=== PATIENT | male | born 1975 | race Caucasian/White ===

== ENCOUNTER 2022-12-19 15:59 | Observation (INO) ==
[2022-12-19] MEDS ORDERED: NS 0.9% 1000 ml BAG 1,000 ML IV ONE (16:03)
[2022-12-19] MEDS ORDERED: Charcoal ACTIVATED 50 GM/240 ML BTL PO ONE (16:37)
[2022-12-19 16:46] LABS: ABS Lymphocytes 0.8 10^3/uL (1.0-4.8); ABS Monocytes 0.4 10^3/uL (0.0-1.1); ABS Neutrophils 4.8 10^3/uL (1.5-7.6); Eosinophil % 0.3 %; Hematocrit 38.8 % (38-53); Hemoglobin 13.3 g/dL (13.2-16.3); Lymphocyte % 13.1 %; Mean Corpuscular Hemoglobin 31.7 pg (27-33); Mean Corpuscular Hgb Conc 34.3 g/dL (31-36); Mean Corpuscular Volume 92.3 fL (80-97); Mean Platelet Volume 6.7 fL (7.5-11.2); Nucleated Red Blood Cells % 0.1 /100 WBC (0.0-0.4); Platelet Count 188 10^3/uL (150-450); Red Cell Distribution Width 12.1 % (12-17)
[2022-12-19 17:19] LABS: ALT 9 U/L (7-52); AST 13 U/L (13-39); Acetaminophen < 15 mcg/mL; Albumin 4.1 g/dL (3.2-5.2); Alcohol, S < 13 mg/dL (<13); Alkaline Phosphatase 50 U/L (35-149); Anion Gap 6 mmol/L (2-16); Blood Urea Nitrogen 19 mg/dL (6-24); CO2 Carbon Dioxide 28 mmol/L (22-32); Calcium 8.8 mg/dL (8.6-10.3); Chloride 101 mmol/L (101-111); Creatinine, Serum 0.86 mg/dL (0.67-1.17); Globulin 2.1 g/dL (2-4); Glucose 126 mg/dL (70-100); Potassium 3.8 mmol/L (3.5-5.0); Salicylate < 2.50 mg/dL (<30); Sodium 135 mmol/L (135-145); Total Protein 6.2 g/dL (6.4-8.9); eGFR CKD-EPI 107.5 (>60)
[2022-12-19 17:31] LABS: TSH Ultra Thyroid Stim Horm 1.61 mcIU/mL (0.34-5.60)
[2022-12-19] MEDS ORDERED: CMCS: Meloxicam 7.5 mg TAB (NF) PO PRN (18:46)
[2022-12-19] MEDS ORDERED: SALMET INH SCH (19:00)
[2022-12-19] MEDS ORDERED: FLUTICAS INH SCH (19:00)
[2022-12-19] MEDS ORDERED: MDI INH SCH (19:00)
[2022-12-19 19:23] LABS: Venous Bicarbonate HCO3 23.6 mmol/L (24-28)
[2022-12-19 20:45] LABS: High Sensitivity Troponin 1 Hr 3 pg/mL (<20)
[2022-12-20 06:33] LABS: Urine Appearance Clear; Urine Bilirubin Negative (Negative); Urine Blood Negative (Negative); Urine Color Yellow; Urine Glucose Negative (Negative); Urine Ketones Negative (Negative); Urine Nitrite Negative (Negative); Urine Protein Negative (Negative); Urine Specific Gravity 1.021 (1.002-1.030); Urine Urobilinogen Negative (Negative)
[2022-12-20 06:55] LABS: Urine Benzodiazepine Screen None Detected (None Detect); Urine Cannabinoids Screen None Detected (None Detect); Urine Opiates Screen None Detected (None Detect)
[2022-12-20] MEDS: Cholecalciferol (VIT D3) 1,000 unit TAB PO SCH (08:31)
[2022-12-20] MEDS: SPIRIVA Respimat (tiotropium) 2.5 mcg/inh Inhaler INH SCH (08:32)
[2022-12-20] MEDS: Mometasone/Formoter 100/5 MDI INH SCH ×2 (08:32→19:44)
[2022-12-21 07:11] VITALS: BP 124/78
[2022-12-21 07:40] LABS: ABS Lymphocytes 1.1 10^3/uL (1.0-4.8); ABS Monocytes 0.5 10^3/uL (0.0-1.1); ABS Neutrophils 5.9 10^3/uL (1.5-7.6); Eosinophil % 0.3 %; Hematocrit 41.3 % (38-53); Hemoglobin 14.2 g/dL (13.2-16.3); Lymphocyte % 14.2 %; Mean Corpuscular Hemoglobin 32.2 pg (27-33); Mean Corpuscular Hgb Conc 34.3 g/dL (31-36); Mean Corpuscular Volume 93.8 fL (80-97); Mean Platelet Volume 6.4 fL (7.5-11.2); Platelet Count 204 10^3/uL (150-450); Red Cell Distribution Width 12.2 % (12-17); White Blood Count 7.5 10^3/uL (3.6-10.2)
[2022-12-21 08:18] LABS: Calcium 9.3 mg/dL (8.6-10.3); Creatinine, Serum 0.83 mg/dL (0.67-1.17); Potassium 4.3 mmol/L (3.5-5.0); eGFR CKD-EPI 108.6 (>60)
[2022-12-21] MEDS: Cholecalciferol (VIT D3) 1,000 unit TAB PO SCH (08:52)
[2022-12-21] MEDS: Mometasone/Formoter 100/5 MDI INH SCH (08:53)
[2022-12-21] MEDS: SPIRIVA Respimat (tiotropium) 2.5 mcg/inh Inhaler INH SCH (08:54)
== END 2022-12-21 12:08 | disposition left against medical advice (07) ==
LOC: EDHOLD 15:59 → ED 15:59 → SUATTDRO 18:28 → EDHOLD 12-26 12:08
PROVIDERS: ADMIT Internal Medicine; ATTEND Internal Medicine